=== PATIENT | male | born 1960 | race Caucasian/White ===

== ENCOUNTER 2017-03-20 15:56 | Emergency (ER) | payer OTHER ==
[~2017-03-20] VITALS: Ht 167.6 cm; Wt 70.0 kg
[2017-03-20 16:01] VITALS: BP 137/83; PULSE 62; RESP 12; TEMP 98.4; O2SAT 99
--- NOTE | 2017-03-20 16:10 | PD ---
Physical Exam Date Seen by Provider: Mar 20, 2017 Time Seen by Provider: 16:08 Narrative 56 yo female here for back pain. [facility]. Comes with paperwork. Triage nurse got report. Persistent headache and nausea. Vitals are stable in triage. Awaiting bed placement. Data Data Last Documented VS Vital Signs Date Time Temp Pulse Resp B/P (MAP) Pulse Ox O2 Delivery O2 Flow Rate FiO2 03/20/17 16:01 98.4 62 12 137/83 (101) 99 MDM Medical Record Reviewed: Yes Supervised Visit with SHOSHANA: Lele Wu Mar 20, 2017 16:09
--- NOTE | 2017-03-20 17:53 | RADRPT ---
EXAM DATE/TIME: 03/20/2017 17:12 [facility] COMPARISON: No previous studies available for comparison. INDICATIONS : Fell hit face on Saturday,now sleepy ,headache and nausea RADIATION DOSE: 36.69 CTDIvol (mGy) MEDICAL HISTORY : None SURGICAL HISTORY : None. ENCOUNTER: Initial ACUITY: 3 days PAIN SCORE: 5/10 LOCATION: facial TECHNIQUE: Volumetric scanning of the facial bones was performed. Using automated exposure control and adjustme nt of the mA and/or kV according to patient size, radiation dose was kept as low as reasonably achiev able to obtain optimal diagnostic quality images. DICOM format image data is available electronicall y for review and comparison. FINDINGS: ORBITS: The orbital and infraorbital osseous structures are intact. The retroconal structures have a normal configuration. No radiopaque foreign bodies are seen. NASAL BONE: The nasal bone and maxillary spine are intact ZYGOMATIC ARCHES: Symmetric without evidence of fracture. SINUSES: The maxillary, ethmoid and frontal sinuses are intact. No air-fluid levels seen. NASAL CAVITY: The nasal septum is intact and midline. The lacrimal ducts are intact. SOFT TISSUES: No radiopaque foreign bodies seen. No soft-tissue swelling is seen. INTRACRANIAL: No intracranial air seen. CRIBIFORM PLATE: Grossly intact. CONCLUSION: Negative for fracture. Minimal nonspecific adenopathy right periparotid region. Eleazar Moore MD FACR on March 20, 2017 at 17:50 Board Certified Radiologist. This report was verified electronically.
--- NOTE | 2017-03-20 17:57 | RADRPT ---
EXAM DATE/TIME: 03/20/2017 17:08 [facility] COMPARISON: No previous studies available for comparison. INDICATIONS : Fall Saturday ,now having headache sleepy, and nausea. RADIATION DOSE: 46.16 CTDIvol (mGy) MEDICAL HISTORY : None SURGICAL HISTORY : None. ENCOUNTER: Initial ACUITY: 3 days PAIN SCALE: 5/10 LOCATION: cranial TECHNIQUE: Multiple contiguous axial images were obtained of the head. Using automated exposure control and adj ustment of the mA and/or kV according to patient size, radiation dose was kept as low as reasonably a chievable to obtain optimal diagnostic quality images. DICOM format image data is available electro nically for review and comparison. FINDINGS: CEREBRUM: The ventricles are normal for age. No evidence of midline shift, mass lesion, hemorrhage or acute in farction. No extra-axial fluid collections are seen. POSTERIOR FOSSA: The cerebellum and brainstem are intact. The 4th ventricle is midline. The cerebellopontine angle i s unremarkable. EXTRACRANIAL: The visualized portion of the orbits is intact. SKULL: The calvaria is intact. No evidence of skull fracture. CONCLUSION: Negative for acute traumatic event. Symptoms persist MRI may be of benefit. Eleazar Moore MD FACR on March 20, 2017 at 17:53 Board Certified Radiologist. This report was verified electronically.
--- NOTE | 2017-03-20 18:33 | PD ---
HPI Chief Complaint: Fall Time Seen by Provider: 18:32 Travel History International Travel<30 days: No Contact w/Intl Traveler<30days: No History of Present Illness HPI 56 YO M presents to the ED for evaluation of 2/10 frontal headache. Onset 5 days ago after the patient fell face first onto concrete. He endorses brief LOC. Worsened by bending over. Patient endorses increased somnolence over the last few days. He complains that " I feel like I could fall asleep every time I' m still." He denies dizziness, vision changes, neck pain, limitations to range of motion of the neck, nausea, vomiting, difficulties with gait. He endorses sustaining a few abrasions on the face and the right hand during the accident. He has been treating with soap and water, Neosporin, keeping it covered while working. He is unsure of the date of his last tetanus immunization. [facility] Social History Tobacco Use: No Allergies-Medications (Allergen,Severity, Reaction): Coded Allergies: pseudoephedrine (Verified Adverse Reaction, Severe, Tachycardia, 03/20/17) flunisolide (Verified Adverse Reaction, Intermediate, Burning, 03/20/17) Reported Meds & Prescriptions Reported Meds & Active Scripts Active Reported Cetirizine (Cetirizine HCl) 10 Mg Tab 10 Mg PO DAILY B-12 (Cyanocobalamin) 1,000 Mcg Subl 1,000 Mcg SL DAILY Vitamin D-1000 (Cholecalciferol) 1,000 Unit Tab 2,000 Units PO DAILY Androgel Pump Topical (Testosterone) 20.25/1.25 Gel 20.25 Mg TOPICAL QID Review of Systems Except as stated in HPI: all other systems reviewed are Neg Physical Exam Narrative GENERAL: Well-nourished, well-developed white male in no acute distress. Sitting up in the stretcher, alert, oriented. SKIN: Warm and dry. Small, well healing superficial abrasion of the forehead and under the left eye. Small abrasion on the posterior aspect of the right hand. No signs of infection. Thorough evaluation reveals no other edema, ecchymosis, abrasion, or laceration of the skin. HEAD: Normocephalic. Atraumatic. No raccoon eyes or salazar sign. No tenderness to palpation of the skull. No bony step-offs. No malocclusion of the teeth. EYES: No scleral icterus. No injection or drainage. PERRLA. EOMI. ENT: Pearly meek tympanic membrane is bilaterally. Nasal mucosa is moist. Oropharynx without erythema, edema or exudate. NECK: Supple, trachea midline. No JVD or lymphadenopathy. No midline tenderness to palpation. Patient retains full, active, painless range of motion of the neck. CARDIOVASCULAR: Regular rate and rhythm without murmurs, gallops, or rubs. 2+ DP and radial pulses bilaterally. RESPIRATORY: Breath sounds clear and equal bilaterally. No accessory muscle use. GASTROINTESTINAL: Abdomen soft, non-tender, nondistended. + Bowel sounds MUSCULOSKELETAL: No cyanosis, or edema. No tenderness to palpation or limitations to range of motion of the joints of the upper and lower extremities bilaterally. NEUROLOGICAL: Awake and alert. Cranial nerves II through XII intact. Motor and sensory grossly within normal limits. 5/5 muscle strength in all muscle groups. Normal speech. BACK: Nontender without obvious deformity. No CVA tenderness. No midline tenderness. Data Data Last Documented VS Vital Signs Date Time Temp Pulse Resp B/P (MAP) Pulse Ox O2 Delivery O2 Flow Rate FiO2 03/20/17 19:58 03/20/17 16:01 98.4 62 12 99 Orders Orders Complete Blood Count With Diff (03/20/17 16:10) Basic Metabolic Panel (Bmp) (03/20/17 16:10) Ct Brain W/O Iv Contrast(Rout) (03/20/17 16:10) Ct Facial Bones W/O Iv Cont (03/20/17 ) Tetanus/Diphtheria Tox Adult (Tetanus/Di (03/20/17 19:00) Ibuprofen (Motrin) (03/20/17 19:00) Radiology Film Requests (03/20/17 ) Labs Laboratory Tests Test 03/20/17 18:20 White Blood Count 5.8 TH/MM3 Red Blood Count 4.94 MIL/MM3 Hemoglobin 15.2 GM/DL Hematocrit 46.2 % Mean Corpuscular Volume 93.5 FL Mean Corpuscular Hemoglobin 30.9 PG Mean Corpuscular Hemoglobin Concent 33.0 % Red Cell Distribution Width 12.8 % Platelet Count 210 TH/MM3 Mean Platelet Volume 9.8 FL Neutrophils (%) (Auto) 51.1 % Lymphocytes (%) (Auto) 36.2 % Monocytes (%) (Auto) 8.2 % Eosinophils (%) (Auto) 3.4 % Basophils (%) (Auto) 1.1 % Neutrophils # (Auto) 3.0 TH/MM3 Lymphocytes # (Auto) 2.1 TH/MM3 Monocytes # (Auto) 0.5 TH/MM3 Eosinophils # (Auto) 0.2 TH/MM3 Basophils # (Auto) 0.1 TH/MM3 CBC Comment DIFF FINAL Differential Comment Blood Urea Nitrogen 12 MG/DL Creatinine 1.11 MG/DL Random Glucose 98 MG/DL Calcium Level 9.4 MG/DL Sodium Level 141 MEQ/L Potassium Level 4.1 MEQ/L Chloride Level 105 MEQ/L Carbon Dioxide Level 29.9 MEQ/L Anion Gap 6 MEQ/L Estimat Glomerular Filtration Rate 69 ML/MIN MDM Medical Decision Making Medical Screen Exam Complete: Yes Emergency Medical Condition: Yes Differential Diagnosis Post traumatic headache versus skull fracture versus ICH versus musculoskeletal pain versus abrasion versus facial fracture versus contusion versus other Narrative Course 56 YO M presents to the ED for evaluation of 2/10 frontal headache. Onset 5 days ago after the patient fell face first onto concrete. He endorses brief LOC. Worsened by bending over. Patient endorses increased somnolence over the last few days. He complains that " I feel like I could fall asleep every time I' m still." He denies dizziness, vision changes, neck pain, limitations to range of motion of the neck, nausea, vomiting, difficulties with gait. He endorses sustaining a few abrasions on the face and the right hand during the accident. He has been treating with soap and water, Neosporin, keeping it covered while working. He is unsure of the date of his last tetanus immunization. Vitals reviewed. Physical exam reveals no focal neuro deficits. Patient has several superficial abrasions that reveal no signs of infection. No tenderness to palpation of the facial bones or skull bones. No midline tenderness to palpation of the neck. No limitations to ROM of the neck. Patient tetanus immunization was updated. He was administered 800 mg ibuprofen. No concerning abnormalities of the CBC or CMP. CT of the brain and facial bones reveals no skull fracture or intracranial hemorrhage. I discussed the results of the workup with the patient. We discussed the course of posttraumatic headache. He is instructed to treat symptomatically, return to normal, gentle activity as tolerated, follow-up with his primary care provider or neurologist if symptoms persist. We discussed reasons to return to the ED. He was provided with a CD copy of his images. He indicated understanding of instructions and is agreeable to the care plan. The patient is stable and discharged home. Diagnosis Primary Impression: Post-traumatic headache Qualified Codes: G44.319 - Acute post-traumatic headache, not intractable Additional Impressions: Abrasion hand Abrasion head Closed head injury with brief loss of consciousness Immunization, tetanus toxoid Referrals: Neurologist Primary Care Physician Patient Instructions: Abrasion (ED), Chronic Post Traumatic Headache (ED), General Instructions Additional Instructions: Rest, hydrate. Resume normal, gentle activities as tolerated. No strenuous physical activities for the next few days Take [id number] pain medications such as ibuprofen as needed for headache and body aches. Applying ice or heat to areas with sore muscles may help to improve your pain. Do not apply ice/ heat for longer than 20 m/h. Keep the wounds clean, dry and covered. After bathing pat of wound dry. Allow the wound to air dry for 10-15 minutes. Apply a thin layer of antibiotic ointment and a clean, dry dressing.. Follow-up with your primary care provider or neurologist if symptoms persist. Return to the ED for any urgent or emergent medical condition. Disposition: 01 DISCHARGE HOME Condition: Stable Shalonda Abad Mar 20, 2017 18:33
[2017-03-20] MEDS ORDERED: CETI10 PO (18:45)
[2017-03-20] MEDS ORDERED: ANDR1.62 TOPICAL (18:45)
[2017-03-20] MEDS ORDERED: VITA1000 PO (18:45)
[2017-03-20] MEDS ORDERED: CYAN100025 SL (18:45)
[2017-03-20 18:47] LABS: BASOPHIL # 0.1 TH/MM3 (0-0.2); BASOPHIL % 1.1 % (0.0-2.0); EOSINOPHIL # 0.2 TH/MM3 (0-0.4); EOSINOPHIL % 3.4 % (0.0-4.0); HEMATOCRIT 46.2 % (39.0-51.0); HEMO FLAGS DIFF FINAL; LYMPH % 36.2 % (9.0-44.0); LYMPHOCYTE # 2.1 TH/MM3 (1.0-4.8); MEAN CELL VOLUME 93.5 FL (80.0-100.0); MEAN CORPUSCULAR HEMOGLOBIN 30.9 PG (27.0-34.0); MONO % 8.2 % (0.0-8.0); NEUT % 51.1 % (16.0-70.0); PLATELET COUNT 210 TH/MM3 (150-450); RED BLOOD COUNT 4.94 MIL/MM3 (4.50-5.90); RED CELL DISTRIBUTION WIDTH 12.8 % (11.6-17.2); WHITE BLOOD COUNT 5.8 TH/MM3 (4.0-11.0)
[2017-03-20] MEDS ORDERED: TETANUS/DIPHTHERIA TOXOID ADULT 0.5 ML VIAL IM ONE (19:00)
[2017-03-20] MEDS ORDERED: IBUPROFEN 800 MG TAB PO ONE (19:00)
[2017-03-20 19:07] LABS: BICARBONATE 29.9 MEQ/L (21.0-32.0); POTASSIUM 4.1 MEQ/L (3.5-5.1)
== END 2017-03-20 20:02 | disposition home or self-care (01) ==
LOC: NEPC 15:56 → EDSEX 15:56 → NEPC 20:02
DX: G44.319 Acute post-traumatic headache, not intractable (principal); S60.511A Abrasion of right hand, initial encounter; S00.81XA Abrasion of other part of head, initial encounter; S06.9X1A Unspecified intracranial injury with loss of consciousness of 30 minutes or less, initial encounter; Z23 Encounter for immunization; W18.39XA Other fall on same level, initial encounter
CPT/HCPCS: 70450; 70486; 80048; 85025; 90471; 90714